=== PATIENT | male | born 1985 | race Caucasian/White ===

== ENCOUNTER 2017-05-09 23:10 | Emergency (ER) | payer SELFPAY ==
[2017-05-09 23:20] VITALS: TEMP 96.8; O2SAT 96
--- NOTE | 2017-05-09 23:52 | EDPHY ---
H & P Stated Complaint: FROM [facility]. ON HOLD, HIT FOREHEAD WHILE DRINKING Source: Patient, EMS Exam Limitations: Intoxication - Personal History Current Tetanus/Diphtheria Vaccine: Yes Current Tetanus Diphtheria and Acellular Pertussis (TDAP): Yes - Medical/Surgical History Hx Asthma: No Hx Chronic Respiratory Disease: No Hx Diabetes: No Hx Cardiac Disease: No Hx Renal Disease: No Hx Cirrhosis: No Hx Alcoholism: No Hx HIV/AIDS: No Hx Splenectomy or Spleen Trauma: No Other PMH: DENIES - Social History Smoking Status: Never smoked Time Seen by Provider: 05/09/17 23:51 HPI/ROS: HPI: This is a 31-year-old male who presents Chief Complaint: FROM [facility]. ON HOLD, HIT FOREHEAD WHILE DRINKING Location: Forehead Quality: Contusion Duration: 1-3 hours ago Signs and Symptoms: no fever, no nausea, no vomiting, no photophobia, no noise sensitivity, no neck stiffness, no ear pain, no weakness, no radiation Timing: Unknown Severity: Mild Context: Patient reports that he was at a friend's house all day drinking heavily for a [employer] democr[employer]. Patient hit his forehead somehow and patient does not remember the events surrounding this. Denies any nausea/vomiting/ headache. He was sent to the emergency room for the are due to head injury while drinking. Patient is clearly intoxicated upon arrival and refuses to have any imaging performed of his head. He is alert and oriented x4. Speech is mildly slurred. Patient denies homicidal ideation/suicidal ideation/ hallucinations. Tetanus is up-to-date. Modifying Factors: None Comment: ROS: Limited due to intoxication MEDICAL/SURGICAL/SOCIAL HISTORY: Medical history: Generally healthy. Does not take any regular medications. Surgical history: Denies Social history: Employed. CONSTITUTIONAL: Intoxicated, polite and cooperative, adult white male, awake and alert, no obvious distress HEENT: Contusion noted to forehead; no abrasion/laceration/active bleeding and normocephalic. NECK: supple, no midline tenderness, flexion 45 degrees, extension 45 degrees, right and left lateral flexion 45 degrees. No meningismus. Cardiovascular: Normal S1/S2, tachycardia, regular rhythm, without murmur rub or gallop. PULMONARY/CHEST: Symmetrical and nontender. no crepitus. Clear to auscultation bilaterally. Good air movement. No accessory muscle usage. ABDOMEN: Soft, nondistended, nontender, no ecchymosis. PELVIC: no pain with rocking; bilateral hips flexion 125 degrees, extension 30 degrees, with no pain internal rotation and no pain external rotation. BACK: No midline tenderness, no paraspinous spasm, deep tendon reflexes 2/2, no pain with straight leg raise EXTREMITIES: 2/2 pulses, strength 5/5, DIP/PIP/MCP flexion/extension intact with good light touch sensation. no deformities, no clubbing, no cyanosis or edema. NEUROLOGICAL: no focal neuro deficits. GCS 15. Light touch sensation intact. Speech mildly slurred. SKIN: Warm and dry, no erythema. no rash. Good capillary refill. (Alondra Wallace) Constitutional: Initial Vital Signs Temperature (C) 36 C 05/09/17 23:10 Heart Rate 117 H 05/09/17 23:10 Respiratory Rate 20 05/09/17 23:10 Blood Pressure 156/107 H 05/09/17 23:10 O2 Sat (%) 96 05/09/17 23:10 O2 Delivery Mode Room Air Allergies/Adverse Reactions: amoxicillin Allergy (Verified 05/09/17 23:20) Home Medications: Medication Instructions Recorded NK [No Known Home Meds] 05/09/17 Medical Decision Making ED Course/Re-evaluation: Arrived to the ER on [facility] Hold. Ethanol [id number] Patient politely refused any imaging. No neurological deficits. Monitored for over 3 hr. 0130: End of shift. Signed over to Dr. Webster pending re-evaluation once more sober. Disposition is discharge to the [facility]. (Alondra Wallace) PHYSICIAN DOCUMENTATION: The patient was evaluated and managed by the [facility]. My co- signature indicates that I have reviewed this chart and I agree with the findings and plan of care as documented. I am the secondary supervising physician. Patient was discharged back to the [facility]. (Liliana Webster) Differential Diagnosis: Head injury including but not limited to concussion, skull fracture, intraparenchymal contusion, subarachnoid, subdural and epidural hematoma. (Alondra Wallace) Departure - Departure Disposition: Other Psych, Not [facility] Clinical Impression: Alcohol intoxication, Forehead contusion Condition: Fair Instructions: Alcohol Intoxication (ED), Facial Contusion (ED) Additional Instructions: Please drink alcohol responsibly. Referrals: [facility] Detox 24 Hours [Outside] - As per Instructions
[2017-05-10 02:06] VITALS: BP 132/88; PULSE 78; RESP 19
== END 2017-05-10 02:05 ==
DX: S00.83XA Contusion of other part of head, initial encounter (principal); F10.129 Alcohol abuse with intoxication, unspecified; W22.8XXA Striking against or struck by other objects, initial encounter; Y92.009 Unspecified place in unspecified non-institutional (private) residence as the place of occurrence of the external cause